=== PATIENT | male | born 1950 | race Caucasian/White ===

== ENCOUNTER → 2016-04-30 | Day surgery (SDC) | payer OTHER ==
[2016-04-23 08:40] VITALS: BMI 25.0
[~2016-04-30] VITALS: Ht 165.1 cm; Wt 69.5 kg
[~2016-04-30] MED LIST: ASPI325T45 PO; ATOR10TA88 PO; ATROPINE SULFATE 0.1 MG/ML 5ML SYR IV PRN; EpHEDrine SULFATE INJ 50 MG/ML AMP IV PRN; LIDOCAINE HCL 2% 2 ML VIAL (20MG/ML) ONE; LISI-789 PO; LSN25 PO; MULT-513 PO; PRLSR20 PO; PROPOFOL IV EMULSION 10 MG/ML 20 ML VIAL IV ONE; SODIUM CHLORIDE 0.9% 500ML 500 ML IV ONE; VITACAP37 PO
[2016-04-30 09:33] VITALS: Ht 165.1 cm; Wt 69.5 kg
--- NOTE | 2016-04-30 10:06 | Endo History and Physical ---
History & Physical Date of Service: Apr 30, 2016. Chief Complaint: screening for Ca Referring Physician: Dr. Toth History of Present Illness 66 yo CM who presents for screening colonoscopy. Past Surgical History Hx Cardiac Surgery: No Hx Internal Defibrillator: No Hx Pacemaker: No Hx Abdominal Surgery: No Hx of Implantable Prosthesis: No Hx Post-Op Nausea and Vomiting: No Hx Cancer Surgery: No Hx Thoracic Surgery: No Hx Orthopedic: Yes (LT SHOULDER, RT FOOT BIG TOE BONE SPUR) Hx Urinary Tract Surgery: No Family History None Social History Smoking Status: Never Smoker Hx Substance Use: No Hx Alcohol Use: Yes (OCCASIONAL) Allergies Coded Allergies: No Known Allergies (Verified , 04/30/16) Current Medications Reported Home Medications Medications Dose Route/Sig Max Daily Dose Days Date Category E-400 (Vitamin E) 400 Unit Cap 1 Tab PO QAM 04/23/16 Reported Aspirin 325 Mg Tab 325 Mg PO QAM 04/23/16 Reported Mvi With Minerals (Multivitamins/Minerals) Tab 1 Tab PO QAM 10/24/10 Reported Prilosec (Omeprazole) 20 Mg Capcr 20 Mg PO QAM 10/24/10 Reported Lipitor (Atorvastatin Calcium) 10 Mg Tab 10 Mg PO HS 10/23/10 Reported Zestril * (Lisinopril) 2.5 Mg Tab 2.5 Mg PO QAM 01/06/07 Reported Vital Signs Weight (Kilograms): 69.55 Height (Feet): 5 Height (Inches): 5 Date Time Temp Pulse Resp B/P Pulse Ox O2 Delivery O2 Flow Rate FiO2 04/30/16 09:38 36 55 20 140/84 100 Room Air Physical Exam General Appearance: WD/WN, no apparent distress Respiratory/Chest: Auscultation: breath sounds normal Cardiovascular: Heart Auscultation: RRR Abdomen: Bowel Sounds: normal Inspection & Palpation: soft, non-distended, no tenderness, guarding & rebound Assessment and Plan Assessment: 66 yo CM who presents for screening colonoscopy. Plan: Proceed with colonoscopy.
--- NOTE | 2016-04-30 10:23 | Discharge Instructions ---
Endoscopy Patient Instructions Date / Procedure(s) Performed Apr 30, 2016. Colonoscopy Allergy Information Coded Allergies: No Known Allergies (Verified , 04/30/16) Discharge Date / Findings Apr 30, 2016. Colon polyp Diverticulosis Internal hemorrhoids Medication Instructions OK to resume all medications today as prescribed. Reported Home Medications Medications Dose Route/Sig Max Daily Dose Days Date Category E-400 (Vitamin E) 400 Unit Cap 1 Tab PO QAM 04/23/16 Reported Aspirin 325 Mg Tab 325 Mg PO QAM 04/23/16 Reported Mvi With Minerals (Multivitamins/Minerals) Tab 1 Tab PO QAM 10/24/10 Reported Prilosec (Omeprazole) 20 Mg Capcr 20 Mg PO QAM 10/24/10 Reported Lipitor (Atorvastatin Calcium) 10 Mg Tab 10 Mg PO HS 10/23/10 Reported Zestril * (Lisinopril) 2.5 Mg Tab 2.5 Mg PO QAM 01/06/07 Reported Provider Instructions Activity Restrictions - No exercising or heavy lifting for 24 hours. - Do not drink alcohol the day of the procedure. - Do not drive a car or operate machinery until the day after the procedure. - Do not make any important decisions or sign important papers in 24 hours after the procedure. Following Day: - Return to full activity which may include returning to work/school. Diet Start your diet with liquids and light foods (jello, soup, juice, toast). Then eat your usual diet if not nauseated. Treatment For Common After Affects For mild abdominal pain, bloating, or excessive gas: - Rest - Eat lightly - Lie on right side Follow-Up Information Follow-up with as scheduled Anesthesia Information What You Should Know You have had a procedure that required some medicine to reduce anxiety and discomfort. This treatment is called moderate sedation. After receiving the treatment, you may be sleepy, but you will be able to breathe on your own. The effects of the treatment may last for several hours. Follow these instructions along with Activity/Diet recommendations noted above: * Do NOT do anything where dizziness or clumsiness would be dangerous. * Rest quietly at home today, then you can be up and about tomorrow. * Have a responsible person stay with you the rest of today. * You may have had an I.V. today. If so, you may take the dressing off later today. Recommendations Call your doctor if: * Trouble breathing * Continuous vomiting for more than 24 hours * Temperature above 101 degrees * Severe abdominal pain or bloating * Pain not relieved by pain medicine ordered * There is increased drainage or redness from any incision * A large amount of rectal bleeding greater than 2-3 tablespoons. (If you had a polyp/s removed or have hemorrhoids, a small amount of blood - from the rectum is to be expected.) * You have any unanswered questions or concerns. IN THE EVENT OF A SERIOUS EMERGENCY, GO TO THE NEAREST EMERGENCY ROOM Your discharge instructions were prepared by provider Tunde Madrigal. Patient Instructions Signature Page Tanmay Yun Patient (or Guardian) Signature/Date: I have read and understand the instructions given to me by my caregivers. Caregiver/RN/Doctor Signature/Date: The above-named patient and/or guardian has received patient instructions on this date. + Original Patient Signature Page (only) stays with chart. Please make copy for patient.
--- NOTE | 2016-04-30 10:28 | Anesthesiology Progress Note ---
Anesthesia Post Op Note Date & Time Apr 30, 2016 at 10:27 Vital Signs Pain Intensity: 0 Vital Signs Past 12 Hours Date Time Temp Pulse Resp B/P Pulse Ox O2 Delivery O2 Flow Rate FiO2 04/30/16 09:38 36 55 20 140/84 100 Room Air Notes Mental Status: alert / awake / arousable, participated in evaluation Pt Amnestic to Procedure: Yes Nausea / Vomiting: adequately controlled Pain: adequately controlled Airway Patency, RR, SpO2: stable & adequate BP & HR: stable & adequate Hydration State: stable & adequate Anesthetic Complications: no major complications apparent
--- NOTE | 2016-04-30 10:29 | GI REPORT ---
Procedure Date: 04/30/2016 9:50 AM Procedure: Colonoscopy Indications: Screening for colorectal malignant neoplasm Medicines: Monitored Anesthesia Care Complications: No immediate complications. Estimated Blood Loss: Estimated blood loss: none. Procedure: Pre-Anesthesia Assessment: - Prior to the procedure, a History and Physical was performed, and patient medications and allergies were reviewed. The patient's tolerance of previous anesthesia was also reviewed. The risks and benefits of the procedure and the sedation options and risks were discussed with the patient. All questions were answered, and informed consent was obtained. Prior Anticoagulants: The patient has taken aspirin, last dose was 7 days prior to procedure. ASA Grade Assessment: II - A patient with mild systemic disease. After reviewing the risks and benefits, the patient was deemed in satisfactory condition to undergo the procedure. After I obtained informed consent, the scope was passed under direct vision. Throughout the procedure, the patient's blood pressure, pulse, and oxygen saturations were monitored continuously. The scope was introduced through the anus and advanced to the terminal ileum. The colonoscopy was performed without difficulty. The patient tolerated the procedure well. The quality of the bowel preparation was good. The terminal ileum, ileocecal valve, appendiceal orifice, and rectum were photographed. The terminal ileum, ileocecal valve, appendiceal orifice, and rectum were photographed. Findings: A 5 mm polyp was found in the ascending colon. The polyp was sessile. The polyp was removed with a hot snare. Resection and retrieval were complete. Multiple small-mouthed diverticula were found in the sigmoid colon. Non-bleeding internal hemorrhoids were found during retroflexion. The hemorrhoids were small. Impression: - One 5 mm polyp in the ascending colon, removed with a hot snare. Resected and retrieved. - Diverticulosis in the sigmoid colon. - Non-bleeding internal hemorrhoids. Recommendation: - Resume previous diet. - Continue present medications. - Repeat colonoscopy for surveillance based on pathology results. - Return to primary care physician as previously scheduled. Tunde Madrigal, DO 04/30/2016 10:28:28 AM This report has been signed electronically. Note Initiated On: 04/30/2016 9:50 AM
[2016-04-30 10:52] VITALS: BP 140/76; PULSE 65; O2SAT 100
== END | disposition home or self-care (01) ==
LOC: C.GI 09:09
PROVIDERS: ATTEND Internal Medicine
DX: Z12.11 Encounter for screening for malignant neoplasm of colon (principal); D12.2 Benign neoplasm of ascending colon; K57.30 Diverticulosis of large intestine without perforation or abscess without bleeding; K64.8 Other hemorrhoids; I10 Essential (primary) hypertension; E78.5 Hyperlipidemia, unspecified

== ENCOUNTER 2016-06-07 11:22 | Emergency (ER) | payer OTHER ==
[~2016-06-07] VITALS: Ht 165.1 cm; Wt 71.3 kg
[~2016-06-07 11:22] MED LIST changes: -ATROPINE SULFATE 0.1 MG/ML 5ML SYR IV PRN; -EpHEDrine SULFATE INJ 50 MG/ML AMP IV PRN; -LIDOCAINE HCL 2% 2 ML VIAL (20MG/ML) ONE; -LISI-789 PO; -PROPOFOL IV EMULSION 10 MG/ML 20 ML VIAL IV ONE; -SODIUM CHLORIDE 0.9% 500ML 500 ML IV ONE
[2016-06-07 11:24] VITALS: TEMP 36.8; Ht 165.1 cm; Wt 71.3 kg
[2016-06-07 12:42] LABS: BASO % 0.3 %; BASO ABS # 0.02 K/uL (0-0.2); COMPLETE YES; EOS % 0.7 %; HEMATOCRIT 42.7 % (42-52); IG% 0.2 %; LYMPH % 15.4 %; MEAN CELL VOLUME 89.9 fL (80-100); MEAN CORPUSCULAR HEMOGLOBIN 31.4 pg (25-34); MEAN CORPUSCULAR HGB CONC 34.9 g/dl (32-36); MEAN PLATELET VOLUME 11.2 fL (7.4-10.4); MONO % 8.5 %; NEUT % 74.9 %; PLATELET COUNT 309 K/uL (130-400); RED BLOOD COUNT 4.75 M/uL (4.7-6.1); WHITE BLOOD COUNT 5.86 K/uL (4.8-10.8)
--- NOTE | 2016-06-07 12:42 | EMERGENCY ROOM VISIT NOTE ---
History Report prepared by Connie: Osman Maxwell Under the Supervision of: Dr. Jose M Brooks M.D. First contact with patient: 12:17 Chief Complaint: RESPIRATORY PROBLEMS Stated Complaint: CAN'T CATCH BREATH Nursing Triage Summary: Having trouble catching breath, symptoms on and off for a few weeks. Trouble taking a deep breath in, "like i cant get enough oxygen." Became SOB walking up stairs today that brought him in. Denies pulmonary history of blood clots. Denies CP. History of Present Illness The patient is a 66 year old male who presents to the Emergency Room with complaints of intermittent shortness of breath for the last two weeks. The shortness of breath was worse today, especially with exertion including going up the stairs. The patient denies any chest pain, including with exertion. He also denies any fevers, abdominal pain, or swelling of the lower extremities. The patient denies any history of cardiac or lung disease. His last stress test was 9-10 years ago. The patient was recently on a 2 [address] ride. He is a former smoker but uses chewing tobacco. The patient takes lisinopril for hypertension. He is not diabetic. Source of History: patient Onset: two weeks Position: other (respiratory) Quality: other (short of breath) Timing: intermittent Modifying Factors (Worsening): exertion Associated Symptoms: No abdominal pain, No chest pain, No fevers Review of Systems See HPI for pertinent positives & negatives. A total of 10 systems reviewed and were otherwise negative. Past Medical & Surgical Medical Problems: (1) HTN (hypertension) Family History No pertinent family history Social History Smoking Status: Never Smoker Marital Status: Housing Status: lives with family Current/Historical Medications Scheduled Aspirin (Aspirin), 325 MG PO QAM Atorvastatin (Lipitor), 10 MG PO HS Lisinopril (Zestril), 2.5 MG PO QAM Multivitamins/Minerals (Mvi With Minerals), 1 TAB PO QAM Omeprazole (Prilosec), 20 MG PO QAM Vitamin E (E-400), 1 TAB PO QAM Allergies Coded Allergies: No Known Allergies (Verified , 04/30/16) Physical Exam Vital Signs Date Time Temp Pulse Resp B/P Pulse Ox O2 Delivery O2 Flow Rate FiO2 06/07/16 17:07 75 18 140/96 98 06/07/16 13:12 62 18 130/86 06/07/16 12:58 58 99 Room Air 06/07/16 11:50 57 06/07/16 11:24 36.8 70 18 155/89 100 Room Air Physical Exam GENERAL: Patient is a healthy-appearing well-nourished HEAD: Normocephalic atraumatic EYES: Ocular movements intact pupils equal and react to light OROPHARYNX mucous membranes are moist no exudates present no erythema or edema present NECK: Supple no nuchal rigidity CHEST: Good equal expansion LUNGS: Clear and equal to auscultation CARDIAC: Normal S1 and S2 ABDOMEN: Soft nontender no guarding BACK: No CVA tenderness EXTREMITIES: No pain upon palpation normal muscle strength in all groups no clubbing cyanosis or edema NEURO: Patient is following commands is answering questions appropriately. Alert and oriented x3 Cranial Nerves 2-12 grossly intact Medical Decision & Procedures ER Provider Diagnostic Interpretation: Radiology results as stated below per my review and radiologist interpretation: CHEST ONE VIEW PORTABLE CLINICAL HISTORY: Pt c/o SOB dyspnea COMPARISON STUDY: No previous studies for comparison. FINDINGS: The bones soft tissues and hemidiaphragms are normal. The cardiomediastinal silhouette is normal. The lungs are clear. The pulmonary vasculature is normal. IMPRESSION: Negative chest. Electronically signed by: José Miguel Barnes M.D. 06/07/2016 1:05 PM Dictated Date/Time: 06/07/2016 1:05 PM Laboratory Results 06/07/16 11:45 Red Blood Count 4.75, Mean Corpuscular Volume 89.9, Mean Corpuscular Hemoglobin 31.4, Mean Corpuscular Hemoglobin Concent 34.9, Mean Platelet Volume 11.2, Neutrophils (%) (Auto) 74.9, Lymphocytes (%) (Auto) 15.4, Monocytes (%) (Auto) 8.5, Eosinophils (%) (Auto) 0.7, Basophils (%) (Auto) 0.3, Neutrophils # (Auto) 4.39, Lymphocytes # (Auto) 0.90, Monocytes # (Auto) 0.50, Eosinophils # (Auto) 0.04, Basophils # (Auto) 0.02 06/07/16 11:45 Test 06/07/16 11:45 06/07/16 13:20 White Blood Count 5.86 K/uL (4.8-10.8) Red Blood Count 4.75 M/uL (4.7-6.1) Hemoglobin 14.9 g/dL (14.0-18.0) Hematocrit 42.7 % (42-52) Mean Corpuscular Volume 89.9 fL (80-100) Mean Corpuscular Hemoglobin 31.4 pg (25-34) Mean Corpuscular Hemoglobin Concent 34.9 g/dl (32-36) Platelet Count 309 K/uL (130-400) Mean Platelet Volume 11.2 fL (7.4-10.4) Neutrophils (%) (Auto) 74.9 % Lymphocytes (%) (Auto) 15.4 % Monocytes (%) (Auto) 8.5 % Eosinophils (%) (Auto) 0.7 % Basophils (%) (Auto) 0.3 % Neutrophils # (Auto) 4.39 K/uL (1.4-6.5) Lymphocytes # (Auto) 0.90 K/uL (1.2-3.4) Monocytes # (Auto) 0.50 K/uL (0.11-0.59) Eosinophils # (Auto) 0.04 K/uL (0-0.5) Basophils # (Auto) 0.02 K/uL (0-0.2) RDW Standard Deviation 42.7 fL (36.4-46.3) RDW Coefficient of Variation 13.0 % (11.5-14.5) Immature Granulocyte % (Auto) 0.2 % Immature Granulocyte # (Auto) 0.01 K/uL (0.00-0.02) D-Dimer 990 ug/L FEU (0-500) Anion Gap 10.0 mmol/L (3-11) Est Creatinine Clear Calc Drug Dose 52.7 ml/min Estimated GFR () 72.6 Estimated GFR (Non- 62.6 BUN/Creatinine Ratio 17.1 (10-20) Calcium Level 9.3 mg/dl (8.5-10.1) Total Bilirubin 0.5 mg/dl (0.2-1) Aspartate Amino Transf (AST/SGOT) 19 U/L (15-37) Alanine Aminotransferase (ALT/SGPT) 26 U/L (12-78) Alkaline Phosphatase 59 U/L (45-117) Total Creatine Kinase 140 U/L (39-308) Creatine Kinase MB 2.7 ng/ml (0.5-3.6) Creatine Kinase MB Ratio 1.9 (0-3.0) Troponin I < 0.015 ng/ml (0-0.045) Pro-B-Type Natriuretic Peptide 72 pg/ml (0-900) Total Protein 7.9 gm/dl (6.4-8.2) Albumin 4.1 gm/dl (3.4-5.0) Globulin 3.8 gm/dl (2.5-4.0) Albumin/Globulin Ratio 1.1 (0.9-2) Influenza Type A (RT-PCR) Neg for Influ A (NEG) Influenza Type A Antigen Neg for Influ A (NEG) Influenza Type B Antigen Neg for Influ B (NEG) Influenza Type B (RT-PCR) Neg for Influ B (NEG) Labs reviewed by ED physician. Medications Administered Medications (Trade) Dose Ordered Sig/Jorge L Route Start Time Stop Time Status Last Admin Dose Admin Albuterol/ Ipratropium (Duoneb) 12 ml ONE ONCE INH 06/07/16 12:45 06/07/16 12:46 DC 06/07/16 12:56 12 ML ECG Indication: SOB/dyspnea Rate (beats per minute): 58 Rhythm: sinus bradycardia Findings: no acute ischemic change, no ectopy ED Course 1235: Past medical records reviewed. The patient was evaluated in room C6. A complete history and physical examination was performed. 1245: DuoNeb 12 ml INH. Medical Decision Differential diagnosis: Etiologies such as infections, reactive airway disease, pneumonia, pneumothorax , COPD, CHF, cardiac ischemia, pulmonary embolism, musculoskeletal, gastrointestinal, as well as others were entertained. This is a 66-year-old male who presents emergency part complaining of shortness of breath with exertion. The patient has a normal CK-MB and troponin function. In addition he has an elevation in his d-dimer therefore he was sent for CAT scan of the chest. This did not show any evidence of pulmonary embolus. Patient was given a breathing treatment in the emergency department which did not improve his symptoms. I did discuss discussed the case with Dr. Madrigal to get a stat stress test performed. The patient was signed out to Dr. Licea at change of shift. Impression Primary Impression: Dyspnea Scribe Attestation The scribe's documentation has been prepared under my direction and personally reviewed by me in its entirety. I confirm that the note above accurately reflects all work, treatment, procedures, and medical decision making performed by me. Departure Information Dispostion Still a Patient Referrals Pro,Keshav Torres M.D. (PCP) Patient Instructions My [facility] Problem Qualifiers Primary Impression: Dyspnea Dyspnea type: dyspnea on exertion Qualified Codes: R06.09 - Other forms of dyspnea
[2016-06-07] MEDS ORDERED: ALBUT/IPRATROP 3MG/0.5MG NEB 3 ML VIAL INH ONE (12:45)
[2016-06-07 12:50] LABS: ALT/SGPT 26 U/L (12-78); BLOOD UREA NITROGEN 21 mg/dl (7-18); BUN/CREATININE RATIO 17.1 (10-20); CALCIUM 9.3 mg/dl (8.5-10.1); CARBON DIOXIDE 25 mmol/L (21-32); CHLORIDE 103 mmol/L (98-107); GLUCOSE 93 mg/dl (70-99); POTASSIUM 3.8 mmol/L (3.5-5.1); SODIUM 138 mmol/L (136-145)
[2016-06-07 12:55] LABS: ALB/GLOB RATIO 1.1 (0.9-2); ALKALINE PHOSPHATASE 59 U/L (45-117); AST/SGOT 19 U/L (15-37); CKMB/CK RATIO 1.9 (0-3.0)
[2016-06-07 12:58] VITALS: PULSE 58; O2SAT 99
--- NOTE | 2016-06-07 13:06 | DIAGNOSTIC IMAGING REPORT ---
CHEST ONE VIEW PORTABLE CLINICAL HISTORY: Pt c/o SOB dyspnea COMPARISON STUDY: No previous studies for comparison. FINDINGS: The bones soft tissues and hemidiaphragms are normal. The cardiomediastinal silhouette is normal. The lungs are clear. The pulmonary vasculature is normal. IMPRESSION: Negative chest. Electronically signed by: José Miguel Barnes M.D. 06/07/2016 1:05 PM Dictated Date/Time: 06/07/2016 1:05 PM
[2016-06-07] MEDS ORDERED: LISI-789 PO (13:52)
[2016-06-07] MEDS ORDERED: OPTIRAY 320 IV PRN (14:45)
--- NOTE | 2016-06-07 14:54 | DIAGNOSTIC IMAGING REPORT ---
CT ANGIOGRAPHY OF THE CHEST, PULMONARY EMBOLUS PROTOCOL CLINICAL HISTORY: Shortness of breath. COMPARISON STUDY: Chest radiograph June 07, 2016. TECHNIQUE: Following IV administration of 93 mL of Optiray-320, helical axial images of the chest were obtained utilizing the pulmonary embolus protocol. Maximal intensity projections and sagittal and coronal reformats were viewed on an independent 3D workstation. IV contrast was administered without complication. CT DOSE: 379.24 mGy.cm FINDINGS: No pulmonary emboli are identified. The size of the heart is normal. There is no evidence of thoracic aortic dissection. Central airways are patent. Lungs are clear. There is no pneumothorax or pleural effusion. No enlarged axillary, mediastinal or hilar lymph nodes are present. Bony thorax and upper abdomen are unremarkable. IMPRESSION: 1. No pulmonary emboli identified. 2. No acute intrathoracic findings. Electronically signed by: Calvin Padilla M.D. 06/07/2016 2:53 PM Dictated Date/Time: 06/07/2016 2:47 PM
[2016-06-07 16:44] LABS: INFLUENZA A PCR Neg for Influ A (NEG); INFLUENZA B PCR Neg for Influ B (NEG)
[2016-06-07 17:07] VITALS: BP 140/96; PULSE 75; O2SAT 98
--- NOTE | 2016-06-07 17:26 | EXERCISE STRESS ECHO ---
*NOTICE TO RECEIVING CONSTITUTION PARTY AGENCY This information is strictly Confidential and protected under [place] law. [place] law prohibits you from making any further disclosure of this information unless further disclosure is expressly permitted by the written consent of the person to whom it pertains or is authorized by law. A general authorization for the release of medical or other information is not sufficient for this purpose. Hospital accepts no responsibility if the information is made available to any other person, INCLUDING THE PATIENT. Interpretation Summary * Name: MADELINE GRACES Study Date: 06/07/2016 03:35 PM BP: 154/96 mmHg * Patient Location: [facility] HR: 59 * : 1950 (M/d/yyyy) Gender: Male Height: 65 in * Age: 66 yrs Ethnicity: [place] Weight: 157 lb * Ordering Physician: Jose M Brooks * Referring Physician: Self, Referred * Performed By: Enid Nesbitt RCS * * Reason For Study: Dyspnea * BSA: 1.8 m2 * Normal resting biventricular systolic function. * Left ventricular diastolic dysfunction. * Normal chamber dimensions. * Mild pulmonic regurgitation. * Trace mitral and tricuspid regurgitation. * The exercise echocardiographic examination is normal without resting left ventricular wall motion abnormalities or inducible ischemia. * The stress ECG response was normal * The stress echocardiogram is negative for inducible ischemia. * RESTING STUDY: Normal left ventricular cavity size, myocardial thickness, wall motion, and systolic function. * Stress wall motion was normal. Procedure Details * ECHOEX, CPT #[id number] * ECHO COLOR FLOW, CPT #[id number] * ECHO DOPPLER, CPT #[id number] Left Ventricle * The left ventricle is normal in size. * There is normal left ventricular wall thickness. * Ejection Fraction = 65-70%. * A full diastolic examination was done with clinical findings of Class I diastolic dysfunction. * Resting wall motion: Normal. Stress wall motion: Appropriate increase in Left ventricular systolic function and decrease in cavity size. No stress induced segmental wall motion abnormalities. * The left ventricular ejection fraction increases normally with stress. The left ventricular end-systolic cavity size reduces post-stress (normal response). The left ventricular wall motion with stress is normal. * No regional wall motion abnormalities noted. Right Ventricle * The right ventricle is normal in size and function. Atria * The left atrial size is normal. * Right atrial size is normal. * No ASD detected; PFO is not assessed. Mitral Valve * The mitral valve is normal. * There is no mitral valve stenosis. * There is trace mitral regurgitation. Tricuspid Valve * The tricuspid valve is normal. * There is no tricuspid stenosis. * There is trace tricuspid regurgitation. * Right ventricular systolic pressure is normal. Aortic Valve * The aortic valve is trileaflet. * The aortic valve opens well. * Aortic stenosis is absent. * No aortic regurgitation is present. Pulmonic Valve * The pulmonic valve is not well seen, but is grossly normal. * Mild pulmonic valvular regurgitation. Great Vessels * The aortic root is normal size. Pericardium * There is no pericardial effusion. Stress Parameters * Normal sinus rhythm, right sided conduction delay, normal ST -T * Stress ECG: No ST changes. No arrhythmias. * Rare premature ventricular beats in early exercise. * The stress portion of this study was personally supervised by the undersigned interpreting physician. * Rest heart rate was '59' BPM. * Rest blood pressure was '154/96' * Maximum heart rate achieved was 148 bpm. * Maximum heart rate was 96 % of maximum age-predicted heart rate. * Maximum blood pressure was '183/71' * Total exercise time was '9:01' * Maximum exercise MET level achieved was '10.1' METS * Maximum treadmill speed was '3.4' miles per hour. * Maximum treadmill elevation was '14'% grade. * Exercise was terminated due to 'leg fatigue' * Normal blood pressure response to exercise. MMode 2D Measurements and Calculations IVSd 1.0 cm IVSs 1.2 cm LVIDd 4.8 cm LVIDs 3.0 cm LVPWd 0.99 cm LVPWs 1.2 cm IVS/LVPW 1.0 FS 37.7 % EDV(Teich) 108.4 ml ESV(Teich) 35.1 ml EF(Teich) 67.6 % EDV(cubed) 111.7 ml ESV(cubed) 27.1 ml EF(cubed) 75.8 % % IVS thick 20.2 % % LVPW thick 16.7 % LV mass(C)d 170.1 grams LV mass(C)dI 95.3 grams/m\S\2 LV mass(C)s 106.3 grams LV mass(C)sI 59.5 grams/m\S\2 CO(Teich) 4.5 l/min CI(Teich) 2.5 l/min/m\S\2 SV(Teich) 73.3 ml SI(Teich) 41.1 ml/m\S\2 CO(cubed) 5.2 l/min CI(cubed) 2.9 l/min/m\S\2 SV(cubed) 84.6 ml SI(cubed) 47.4 ml/m\S\2 Ao root diam 3.8 cm Ao root area 11.3 cm\S\2 ACS 1.7 cm LA dimension 3.4 cm LA/Ao 0.90 LVAd ap4 33.9 cm\S\2 LVLd ap4 8.8 cm EDV(MOD-sp4) 107.0 ml LVAs ap4 18.7 cm\S\2 LVLs ap4 7.6 cm ESV(MOD-sp4) 39.0 ml EF(MOD-sp4) 63.6 % LVAd ap2 27.8 cm\S\2 LVLd ap2 8.9 cm EDV(MOD-sp2) 72.0 ml LVAs ap2 10.7 cm\S\2 LVLs ap2 6.5 cm ESV(MOD-sp2) 16.0 ml EF(MOD-sp2) 77.8 % CO(MOD-sp4) 4.2 l/min CI(MOD-sp4) 2.4 l/min/m\S\2 SV(MOD-sp4) 68.0 ml SI(MOD-sp4) 38.1 ml/m\S\2 CO(MOD-sp2) 3.5 l/min CI(MOD-sp2) 1.9 l/min/m\S\2 SV(MOD-sp2) 56.0 ml SI(MOD-sp2) 31.4 ml/m\S\2 Doppler Measurements and Calculations MV E max rachid 80.9 cm/sec MV A max rachid 85.4 cm/sec MV E/A 0.95 MV P1/2t max rachid 104.7 cm/sec MV P1/2t 87.0 msec MVA(P1/2t) 2.5 cm\S\2 MV dec slope 352.5 cm/sec\S\2 MV dec time 0.23 sec Ao V2 max 132.8 cm/sec Ao max PG 7.1 mmHg Ao max PG (full) 1.5 mmHg LV V1 max PG 5.5 mmHg LV V1 max 117.5 cm/sec PA V2 max 132.6 cm/sec PA max PG 7.0 mmHg PI max rachid 202.4 cm/sec PI max PG 16.6 mmHg PI dec slope 195.0 cm/sec\S\2 PI P1/2t 303.9 msec TR max rachid 223.1 cm/sec
--- NOTE | 2016-06-07 22:38 | EMERGENCY ROOM VISIT NOTE ---
ED Visit Note First contact with patient: 16:03 I received this patient in signout at the change of shift from Dr. Jose M Brooks pending cardiac stress test. Per Dr. Mason the patient did well and had no ischemic change. The patient was discharged per Dr. Brooks's instructions to follow-up with his PCP. He will return to the ER for worsening of symptoms or any medical concerns.
== END 2016-06-07 17:08 | disposition home or self-care (01) ==
LOC: C.EDB 11:23 → C.EDC 17:08
DX: R06.09 Other forms of dyspnea (principal); F17.220 Nicotine dependence, chewing tobacco, uncomplicated; I10 Essential (primary) hypertension; Z79.899 Other long term (current) drug therapy; Z79.82 Long term (current) use of aspirin

== ENCOUNTER → 2017-01-21 | Outpatient (CLI) | payer OTHER ==
[~2017-01-21] MED LIST changes: +LISI-789 PO; -LSN25 PO
[2017-01-21 12:25] LABS: ALT/SGPT 24 U/L (12-78); BLOOD UREA NITROGEN 16 mg/dl (7-18); BUN/CREATININE RATIO 14.5 (10-20); CARBON DIOXIDE 26 mmol/L (21-32); CHLORIDE 109 mmol/L (98-107); CHOLESTEROL 188 mg/dl (0-200); GLUCOSE 95 mg/dl (70-99); POTASSIUM 4.1 mmol/L (3.5-5.1); SODIUM 142 mmol/L (136-145)
[2017-01-21 12:31] LABS: ALB/GLOB RATIO 1.2 (0.9-2); ALKALINE PHOSPHATASE 52 U/L (45-117); AST/SGOT 15 U/L (15-37); CHOLESTEROL/HDL RATIO 2.8; HDL CHOLESTEROL 67 mg/dl; LDL CHOLESTEROL CALCULATED 98 mg/dl; TRIGLYCERIDES 113 mg/dl (0-150); VERY LOW DENSITY LIPOPROT CALC 23 mg/dl
== END | disposition home or self-care (01) ==
LOC: C.LAB1850 10:37
PROVIDERS: ATTEND Internal Medicine
DX: Z00.00 Encounter for general adult medical examination without abnormal findings (principal); E78.5 Hyperlipidemia, unspecified; R97.20 Elevated prostate specific antigen [PSA]; R73.01 Impaired fasting glucose; I10 Essential (primary) hypertension; N40.0 Benign prostatic hyperplasia without lower urinary tract symptoms

== ENCOUNTER 2022-05-15 11:13 | Observation (INO) ==
[2022-05-15] MEDS ORDERED: OPTIRAY 320 500ml IV ONE (11:33)
[2022-05-15] MEDS ORDERED: LABETALOL HCL IV 5 MG/ML 20ML IV STA (11:47)
--- NOTE | 2022-05-15 11:49 | CT Scan Report ---
CT SCAN OF THE BRAIN WITHOUT IV CONTRAST CLINICAL HISTORY: Neurological deficit. Stroke like symptoms. Left-sided weakness. COMPARISON STUDY: CT of the brain dated 01/06/2007 TECHNIQUE: Unenhanced axial CT scan of the brain is performed from the vertex to the skull base. A do se lowering technique was utilized adhering to the principles of ALARA. FINDINGS: Brain parenchyma: There is age-related involutional change noting moderate subcortical and periventri cular microangiopathic disease. There is no hemorrhage, mass effect, or evidence of acute territorial ischemia by CT criteria. Velazquez-white matter differentiation is preserved. No extra-axial fluid collec tion is seen. Ventricles, sulci, cisterns: Prominent secondary to involutional change. Intracranial vasculature: There is atherosclerotic calcification of the cavernous carotid and vertebr al arteries. Calvarium: Unremarkable. Sinuses and mastoids: The visualized paranasal sinuses are clear. The mastoid air cells are well pneu matized. Orbits: The bony orbits are grossly intact. IMPRESSION: There is no hemorrhage, mass effect, or evidence of acute territorial ischemia by CT promise lazo. ACT 112: Negative or not required by law. Electronically signed by: Kamron Turner M.D. 05/15/2022 11:48 AM
--- NOTE | 2022-05-15 11:49 | Emergency Department Note ---
Impression & Plan Stroke-like symptom ADMIT ED Provider Note HPI: The patient is a 72-year-old gentleman with history of hypertension, hyperlipidemia, presents the emergency department with multiple issues. Patient states that around 7:30 in the morning he began to have a sensation of lightheadedness with some moderate shortness of breath. Patient states that he left the house went to get his haircut, when he returned home at approximately 9 AM he began to have a sensation of left arm numbness. Patient states that on arrival here to the ED the sensation of left arm numbness is almost completely resolved. Stroke alert was activated from triage by nursing staff after the patient was evaluated in triage, he was taken to CT imaging immediately. On my initial assessment upon his return, patient does not have any obvious focal deficits on my exam, complains of very mild sensation of left arm numbness but otherwise does not have any focal deficits or other complaints. ROS: - Per HPI *Outpatient medications and allergy history reviewed. *Pertinent external medical records reviewed. PE: General: Alert HEENT: Normocephalic, trachea midline Eyes: Extraocular eye movement is intact, no scleral erythema Pulmonary: Clear to auscultation bilaterally, no wheezing Cardio: Regular rate and rhythm GI: Abdomen is soft, nontender : No suprapubic tenderness MSK: No evidence of trauma or malformation of the extremities, no edema Skin: No evidence of rash Neuro: Alert, no focal deficits, equal bilateral wire lather strength, no ataxia on [id number] testing bilaterally, no drift of the upper extremities or lower extremities with testing against gravity Psychiatric: Cooperative quality assurance monitor body: - An order was placed for continuous cardiac monitoring - Patient was noted to be in sinus rhythm with a rate of 65 EKG: (As interpreted by myself): Rate: 63 Rhythm: Normal sinus rhythm Intervals: Within normal limits ST changes: No ST elevation Time: 1144 Interventions provided in ED: -IV labetalol, clopidogrel NIH STROKE SCALE: 1A: Level of consciousness Alert; keenly responsive 0 1B: Ask month and age Both questions right 0 1C: 'Blink eyes' & 'squeeze hands' Performs both tasks 0 2: Horizontal extraocular movements Normal 0 3: Visual daly No visual loss 0 4: Facial palsy Normal symmetry 0 5A: Left arm motor drift No drift for 10 seconds 0 5B: Right arm motor drift No drift for 10 seconds 0 6A: Left leg motor drift No drift for 5 seconds 0 6B: Right leg motor drift No drift for 5 seconds 0 7: Limb Ataxia No ataxia 0 8: Sensation Normal; no sensory loss 0 9: Language/aphasia Normal; no aphasia 0 10: Dysarthria Normal 0 11: Extinction/inattention No abnormality 0 TOTAL NIH SCORE =0 Medical Decision Making: Patient presented to the emergency department with a chief complaint of ligh theadedness and left upper extremity numbness. Patient states that this sensation was transient in nature, on arrival here to the ED his symptoms largely resolved. Stroke alert was initiated from triage given the patient's complaint of left upper extremity numbness and tingling. Patient was taken to CT, CT imaging of the head without contrast does not show any evidence of intracranial bleeding, CT angiography does not show any evidence of large vessel occlusion. I did discuss the patient's presentation with on- call stroke neurology at [facility], Dr. Kimble, at this time recommends avoidance of thrombolytic therapy given the patient's symptomatic improvement, borderline window on arrival, in addition to symptoms being purely sensory in nature. I did discuss this with the patient and his and he is in agreement to forego thrombolytics. Suspicion is high for TIA given the patient's presenting hypertension, he was given a dose of IV labetalol shortly after arrival. Lab work is otherwise generally unremarkable, patient is hemodynamically stable and saturating well on room air, blood pressure did improve to 150/77 following IV labetalol. He was loaded with clopidogrel at the advice of stroke neurology. Given the patient's ongoing symptoms, hypertension, he will be admitted to the hospitalist service following my discussion with the on-call hospitalist, Dr. Cosme. Patient will require secondary work-up and MRI. Patient and his at the bedside are in agreement to the above plan the patient was admitted in stable condition for further care Disposition discussion held by myself with: Patient and Consultants contacted from the ED: -Stroke neurology, Dr. Kimble -Hospitalist service, Dr. Cosme * CRITICAL CARE TIME: ( 45 ) minutes -Management of strokelike symptoms within window for potential thrombolytics requiring stroke alert activation to be called, time spent at the bedside with history and physical exam as well as NIH stroke scale, discussion with stroke neurology on-call, administration of IV labetalol for hypertension in the setting of neurologic deficit, arrangement of admission and discussion with hospitalist service Diagnosis: 1. Left upper extremity numbness/tingling 2. Hypertensive emergency 3. Lightheadedness, acute Disposition: Admission José Miguel Dangelo DO Emergency Medicine Past Med/Surg History Medical History Diverticulosis of colon GERD (gastroesophageal reflux disease) History of vitamin D deficiency Hyperlipidemia Hypertension Internal hemorrhoids Tubular adenoma of colon Surgical History History of carpal tunnel surgery of right wrist History of colonoscopy History of esophagogastroduodenoscopy (EGD) History of lateral meniscus repair of right knee History of open reduction and internal fixation (ORIF) procedure History of prostate biopsy History of toe surgery History of wisdom tooth extraction Hx of LASIK Hx of vasectomy S/P hemorrhoidectomy S/P shoulder surgery Family History Father Aortic aneurysm Hypertension Grandfather (Maternal) Cancer Grandmother (Maternal) Diabetes Mother Diabetes Other No family history of adverse response to anesthesia Denies family history of Ovarian cancer Prostate cancer Myocardial infarction Breast cancer Colorectal cancer Social History Smoking Status: Never smoker Second Hand Exposure: No; Hx Alcohol Use: Yes Alcohol type: beer Hx Substance Use: No Preferred Language: Colombian Communication Ability: Effective Visual Impairment: No Limitations Hearing Ability: Use of Hearing Aid Respiratory Therapist Assistant Required: No Beliefs That Will Affect Care: None marital status: Current Living Situation: Spouse current occupational status: retired Feels Safe at Home: Yes Childhood Exposure to Second-Hand Smoke: No Dental Care, Regularly: Yes Physical Activity Frequency: Daily Seatbelt Use: always Sunscreen Use: Yes Assistive Devices: Glasses and Hearing Aid - Bilateral Allergies Allergies Allergy/AdvReac Type Severity Reaction Status Date / Time Zocor TABS Allergy Uncoded 02/06/22 08:07 Home Meds Home Medications Medication Instructions Recorded Confirmed aspirin 325 mg tablet 325 mg PO QAM 01/24/19 02/06/22 omeprazole magnesium 20 mg 20 mg PO QAM 01/24/19 02/06/22 tablet,delayed release multivitamin 1 tab PO QAM 03/02/21 02/06/22 Previous Rx's Medication Instructions Recorded sildenafil 50 mg tablet 50 mg PO DAILY PRN sexual activity 05/26/20 #10 tabs hydrocortisone 2.5 % topical cream 1 applic NE DAILY PRN hemorrhoids 01/08/22 with perineal applicator #30 grams (Anusol-HC) lisinopril 2.5 mg tablet 2.5 mg PO QAM #90 tabs 02/06/22 rosuvastatin 5 mg tablet (Crestor) 5 mg PO 3XWK #30 tabs 03/22/22 Results & Data (ED) Vital Signs Vital Signs - 24 hr 05/15/22 11:24 05/15/22 11:43 05/15/22 11:44 Temperature 36.8 C Temperature Source Temporal Artery Scan Pulse Rate 66 Pulse Rate [Apical] 63 Pulse Rhythm Regular Pulse Strength Normal Respiratory Rate 20 20 Respiratory Effort / Characteristics Non-Labored Spontaneous Non-Labored Spontaneous Respiratory Depth Normal Normal Respiratory Pattern Regular Regular Blood Pressure 198/105 H Blood Pressure [Left Arm] 196/94 H Blood Pressure Mean 136 Blood Pressure Mean [Left Arm] 128 Blood Pressure Position Sitting Pulse Oximetry 99 95 99 Oxygen Delivery Method Room Air Room Air Room Air Sepsis Recent Fever Within 48 Hours No Sepsis New/Unexplained Change in Mental Status No Sepsis Action Taken by Nursing No Action Required 05/15/22 11:51 05/15/22 11:58 Temperature Temperature Source Pulse Rate 63 Pulse Rate [Apical] 59 L Pulse Rhythm Pulse Strength Respiratory Rate 20 20 Respiratory Effort / Characteristics Non-Labored Spontaneous Respiratory Depth Normal Respiratory Pattern Regular Blood Pressure 190/93 H Blood Pressure [Left Arm] 150/77 H Blood Pressure Mean 125 Blood Pressure Mean [Left Arm] 101 Blood Pressure Position Pulse Oximetry 99 97 Oxygen Delivery Method Room Air Room Air Sepsis Recent Fever Within 48 Hours Sepsis New/Unexplained Change in Mental Status Sepsis Action Taken by Nursing Laboratory Data 05/15/22 11:38 05/15/22 11:38 Lab Results 05/15/22 05/15/22 05/15/22 Range/Units 11:38 11:38 11:38 WBC 5.44 (4.8-10.8) K/ul RBC 4.43 L (4.70-6.10) M/uL Hgb 13.6 L (14.0-18.0) g/dl Hct 40.3 L (42.0-52.0) % MCV 91.0 (80.0-100.0) fL MCH 30.7 (25.0-34.0) pg MCHC 33.7 (32.0-36.0) g/dL RDW Std Deviation 42.1 (36.4-46.3) fL RDW Coeff of [place] 12.7 (11.5-14.5) % Plt Count 285 (130-400) K/uL MPV 10.3 (9.4-12.4) fL Immature Gran % (Auto) 0.2 % Neut % (Auto) 74.8 % Lymph % (Auto) 15.4 % [place] % (Auto) 7.9 % Eos % (Auto) 1.3 % Baso % (Auto) 0.4 % Neut # (Auto) 4.07 (1.40-6.50) K/uL Lymph # (Auto) 0.84 L (1.2-3.4) K/uL [place] # (Auto) 0.43 (0.11-0.59) K/uL Eos # (Auto) 0.07 (0-0.50) K/uL Baso # (Auto) 0.02 (0-0.2) K/uL Immature Gran # (Auto) 0.01 (0.01-0.20) K/uL PT 10.8 (9.0-12.0) Seconds INR 1.0 (0.9-1.1) APTT 24.3 (21.0-31.0) Seconds PTT Ratio 0.9 Sodium 134 L (136-145) mmol/L Potassium 3.9 (3.5-5.1) mmol/L Chloride 104 (98-107) mmol/L Carbon Dioxide 26 (21-32) mmol/L Anion Gap 4 (3-11) BUN 16 (6-23) mg/dl Creatinine 1.01 (0.6-1.4) mg/dl Est Cr Clr Drug Dosing 57.5 ml/min Est GFR ( Amer) 85.7 ml/min Est GFR (Non-Af Amer) 74.0 ml/min BUN/Creatinine Ratio 15.8 (10-20) Glucose 99 (70-99(Fasting)) mg/dl POC Glucose (70-99) mg/dl Calcium 9.0 (8.5-10.1) mg/dl Magnesium 2.0 (1.7-2.4) mg/dl Total Bilirubin 0.4 (0.2-1.0) mg/dl AST 16 (13-39) U/L ALT 13 (7-52) U/L Alkaline Phosphatase 47 (34-104) U/L Troponin I High Sens 3.4 (0-20) pg/ml Total Protein 6.1 (6.0-8.3) gm/dl Albumin 3.8 (3.4-5.0) gm/dl Globulin 2.3 L (2.5-4.0) gm/dl Albumin/Globulin Ratio 1.7 (0.9-2) 05/15/22 Range/Units 11:41 WBC (4.8-10.8) K/ul RBC (4.70-6.10) M/uL Hgb (14.0-18.0) g/dl Hct (42.0-52.0) % MCV (80.0-100.0) fL MCH (25.0-34.0) pg MCHC (32.0-36.0) g/dL RDW Std Deviation (36.4-46.3) fL RDW Coeff of [place]on (11.5-14.5) % Plt Count (130-400) K/uL MPV (9.4-12.4) fL Immature Gran % (Auto) % Neut % (Auto) % Lymph % (Auto) % [place] % (Auto) % Eos % (Auto) % Baso % (Auto) % Neut # (Auto) (1.40-6.50) K/uL Lymph # (Auto) (1.2-3.4) K/uL [place] # (Auto) (0.11-0.59) K/uL Eos # (Auto) (0-0.50) K/uL Baso # (Auto) (0-0.2) K/uL Immature Gran # (Auto) (0.01-0.20) K/uL PT (9.0-12.0) Seconds INR (0.9-1.1) APTT (21.0-31.0) Seconds PTT Ratio Sodium (136-145) mmol/L Potassium (3.5-5.1) mmol/L Chloride (98-107) mmol/L Carbon Dioxide (21-32) mmol/L Anion Gap (3-11) BUN (6-23) mg/dl Creatinine (0.6-1.4) mg/dl Est Cr Clr Drug Dosing ml/min Est GFR ( Amer) ml/min Est GFR (Non-Af Amer) ml/min BUN/Creatinine Ratio (10-20) Glucose (70-99(Fasting)) mg/dl POC Glucose 92 (70-99) mg/dl Calcium (8.5-10.1) mg/dl Magnesium (1.7-2.4) mg/dl Total Bilirubin (0.2-1.0) mg/dl AST (13-39) U/L ALT (7-52) U/L Alkaline Phosphatase (34-104) U/L Troponin I High Sens (0-20) pg/ml Total Protein (6.0-8.3) gm/dl Albumin (3.4-5.0) gm/dl Globulin (2.5-4.0) gm/dl Albumin/Globulin Ratio (0.9-2) Administered Medications Discontinued Medications Aspirin (Aspirin Chew 324 Mg) 162 mg PO NOW STA Stop: 05/15/22 12:01 Last Admin: 05/15/22 12:17 Dose: Not Given Documented By: CHON Clopidogrel Bisulfate (Clopidogrel Bisulfate 300 Mg Tab) 600 mg PO NOW STA Stop: 05/15/22 12:01 Last Admin: 05/15/22 12:27 Dose: 600 mg Documented By: CHON Ioversol (Optiray 320 500ml) 120 ml IV ONCE ONE Stop: 05/15/22 11:34 Last Admin: 05/15/22 11:33 Dose: 120 ml Documented By: LUCIA Labetalol HCl (Labetalol Hcl Iv 5 Mg/Ml 20ml) 10 mg IV NOW STA Stop: 05/15/22 11:48 Last Admin: 05/15/22 11:55 Dose: 10 mg Documented By: CHON Co-signed By: EB Imaging Data Radiologist's Impression: Head CT 05/15/22 11:27 CT SCAN OF THE BRAIN WITHOUT IV CONTRAST CLINICAL HISTORY: Neurological deficit. Stroke like symptoms. Left-sided weakness. COMPARISON STUDY: CT of the brain dated 01/06/2007 TECHNIQUE: Unenhanced axial CT scan of the brain is performed from the vertex to the skull base. A dose lowering technique was utilized adhering to the principle s of ALARA. FINDINGS: Brain parenchyma: There is age-related involutional change noting moderate subcortical and periventricular microangiopathic disease. There is no hemorrhage, mass effect, or evidence of acute territorial ischemia by CT criteria. Velazquez-white matter differentiation is preserved. No extra-axial fluid collection is seen. Ventricles, sulci, cisterns: Prominent secondary to involutional change. Intracranial vasculature: There is atherosclerotic calcification of the cavernous carotid and vertebral arteries. Calvarium: Unremarkable. Sinuses and mastoids: The visualized paranasal sinuses are clear. The mastoid air cells are well pneumatized. Orbits: The bony orbits are grossly intact. IMPRESSION: There is no hemorrhage, mass effect, or evidence of acute ter ritorial ischemia by CT criteria. ACT 112: Negative or not required by law. Electronically signed by: Kamron Turner M.D. 05/15/2022 11:48 AM Head CTA 05/15/22 11:27 CT angio head w con CLINICAL HISTORY: 72 years-old Male with neuro deficit, acute stroke suspected. Acute strokelike symptoms COMPARISON STUDY: Head CT of same day TECHNIQUE: Following the IV administration of 120 cc of Optiray, CT angiogram of the brain was performed from the skull base to the vertex. Images are reviewed in the axial, sagittal, and coronal planes. 3-D MIPS images are created and assessed. IV contrast was administered without complication. All measurements we re obtained according to NASCET criteria. A dose lowering technique was utilized adhering to the principles of ALARA. CT DOSE: 1171.17 mGy.cm FINDINGS: CT ANGIOGRAM OF THE BRAIN: The imaged bilateral internal carotid arteries are patent. The bilateral anterior and middle cerebral arteries are also patent. The vertebrobasilar system and posterior cerebral arteries are widely patent. Dominant left vertebral artery. There is no aneurysm, high-grade stenosis, or proximal branch occlusion identified. Dural sinuses appear patent. Involutional changes with chronic microvascular ischemic disease. IMPRESSION: Unremarkable CTA of the head. ACT 112: Negative or not required by law. The above report was generated using voice recognition software. It may contain grammatical, syntax or spelling errors. Electronically signed by: Cesar Castrejon M.D. 05/15/2022 11:56 AM Neck CTA 05/15/22 11:27 CT ANGIOGRAPHY OF THE NECK WITH CONTRAST CLINICAL HISTORY: neuro deficit, acute stroke suspected. Left-sided weakness. COMPARISON STUDY: Carotid ultrasound February 08, 2020. Technique: CT angiography of the carotid and vertebral arteries was obtained using Optiray and 3D reconstruction on an independent workstation. NASCET criteria was utilized. Automated exposure control was utilized for the study. A dose lowering technique was utilized adhering to the principles of ALARA. Findings: There is no acute cervical spine fracture. Lucent lesions within the cervical spine are likely benign. There is no cervical lymphadenopathy. The bilateral common carotid, cervical internal carotid and vertebral arteries are patent. The left vertebral artery is dominant. No stenosis within these vessels. There is mild plaque within the proximal right internal carotid artery without stenosis. There is moderate plaque at the origin of the left vertebral artery without significant stenosis. There is no dissection or aneurysm within the neck. IMPRESSION: No stenosis or dissection within the bilateral common carotid, cervical internal carotid or vertebral arteries. ACT 112: Negative or not required by law. Electronically signed by: Calvin Padilla M.D. 05/15/2022 11:50 AM Discharge Plan Visit Data Chief Complaint: Neuro Symptoms/Deficit Stated Complaint: SOB, NUMBNESS IN LEFT ARM, NUMB FACE ED Provider: José Miguel Dangelo Discharge Problem: Stroke-like symptom Forms Stand Alone Forms: My Needium Prescriptions Prescriptions: No Action aspirin 325 mg tablet 325 mg PO QAM omeprazole magnesium 20 mg tablet,delayed release (DR/EC) 20 mg PO QAM lisinopril 2.5 mg tablet 2.5 mg PO QAM Qty: 90 3RF Referrals Referrals: Pro,Keshav Torres MD [Primary Care Provider] -
--- NOTE | 2022-05-15 11:52 | CT Scan Report ---
CT ANGIOGRAPHY OF THE NECK WITH CONTRAST CLINICAL HISTORY: neuro deficit, acute stroke suspected. Left-sided weakness. COMPARISON STUDY: Carotid ultrasound February 08, 2020. Technique: CT angiography of the carotid and vertebral arteries was obtained using Optiray and 3D rec onstruction on an independent workstation. NASCET criteria was utilized. Automated exposure control was utilized for the study. A dose lowering technique was utilized adhering to the principles of ALA RA. Findings: There is no acute cervical spine fracture. Lucent lesions within the cervical spine are lik milena benign. There is no cervical lymphadenopathy. The bilateral common carotid, cervical internal car otid and vertebral arteries are patent. The left vertebral artery is dominant. No stenosis within the se vessels. There is mild plaque within the proximal right internal carotid artery without stenosis. There is moderate plaque at the origin of the left vertebral artery without significant stenosis. The re is no dissection or aneurysm within the neck. IMPRESSION: No stenosis or dissection within the bilateral common carotid, cervical internal carotid or vertebral arteries. ACT 112: Negative or not required by law. Electronically signed by: Calvin Padilla M.D. 05/15/2022 11:50 AM
[2022-05-15 11:57] LABS: Basophils # (auto) 0.02 K/uL (0-0.2); Basophils % (auto) 0.4 %; Eosinophils # (auto) 0.07 K/uL (0-0.50); Eosinophils % (auto) 1.3 %; Hematocrit (blood only) 40.3 % (42.0-52.0); Hemoglobin 13.6 g/dl (14.0-18.0); Immature Granulocytes # (auto) 0.01 K/uL (0.01-0.20); Immature Granulocytes % (auto) 0.2 %; Lymphocytes # (auto) 0.84 K/uL (1.2-3.4); Lymphocytes % (auto) 15.4 %; Mean Corpuscular Hemoglobin 30.7 pg (25.0-34.0); Mean Corpuscular Hgb Conc 33.7 g/dL (32.0-36.0); Mean Platelet Volume 10.3 fL (9.4-12.4); Monocytes # (auto) 0.43 K/uL (0.11-0.59); Monocytes % (auto) 7.9 %; Neutrophils # (auto) 4.07 K/uL (1.40-6.50); Neutrophils % (auto) 74.8 %; Platelet Count 285 K/uL (130-400); RDW Coefficient of Variation 12.7 % (11.5-14.5); RDW Standard Deviation 42.1 fL (36.4-46.3); Red Blood Count 4.43 M/uL (4.70-6.10); White Blood Count 5.44 K/ul (4.8-10.8)
--- NOTE | 2022-05-15 11:57 | CT Scan Report ---
CT angio head w con CLINICAL HISTORY: 72 years-old Male with neuro deficit, acute stroke suspected. Acute strokelike s ymptoms COMPARISON STUDY: Head CT of same day TECHNIQUE: Following the IV administration of 120 cc of Optiray, CT angiogram of the brain was perfor med from the skull base to the vertex. Images are reviewed in the axial, sagittal, and coronal planes . 3-D MIPS images are created and assessed. IV contrast was administered without complication. All me asurements were obtained according to NASCET criteria. A dose lowering technique was utilized adherin g to the principles of ALARA. CT DOSE: 1171.17 mGy.cm FINDINGS: CT ANGIOGRAM OF THE BRAIN: The imaged bilateral internal carotid arteries are patent. The bilateral anterior and middle cerebral arteries are also patent. The vertebrobasilar system and posterior cerebral arteries are widely resendiz nt. Dominant left vertebral artery. There is no aneurysm, high-grade stenosis, or proximal branch occ lusion identified. Dural sinuses appear patent. Involutional changes with chronic microvascular ische gloria disease. IMPRESSION: Unremarkable CTA of the head. ACT 112: Negative or not required by law. The above report was generated using voice recognition software. It may contain grammatical, syntax o r spelling errors. Electronically signed by: Cesar Castrejon M.D. 05/15/2022 11:56 AM
[2022-05-15] MEDS ORDERED: ASPIRIN CHEW 324 MG PO STA (12:00)
[2022-05-15] MEDS ORDERED: CLOPIDOGREL BISULFATE 300 MG TAB PO STA (12:00)
[2022-05-15 12:16] LABS: Albumin Globulin Ratio 1.7 (0.9-2); Albumin Level 3.8 gm/dl (3.4-5.0); BUN Creatinine Ratio 15.8 (10-20); Bilirubin,Total 0.4 mg/dl (0.2-1.0); Creatinine Clr Calc Pharmacy 57.5 ml/min; Est GFR (African American) 85.7 ml/min; Globulin 2.3 gm/dl (2.5-4.0); Potassium 3.9 mmol/L (3.5-5.1); Total Protein 6.1 gm/dl (6.0-8.3)
[2022-05-15 12:20] LABS: Troponin I High Sensitivity 3.4 pg/ml (0-20)
[2022-05-15 12:28] LABS: Partial Thromboplastin Ratio 0.9; Partial Thromboplastin Time 24.3 Seconds (21.0-31.0); Prothrombin Time 10.8 Seconds (9.0-12.0)
--- NOTE | 2022-05-15 13:07 | XRay Report ---
XR chest 1V portable HISTORY: shortness of breath COMPARISON: Chest 06/07/2016. FINDINGS: No pneumothorax. No pleural effusions. The lungs are clear. The heart is normal in size. Po stoperative changes again noted within the left humerus. IMPRESSION: No significant change compared to the prior study. No acute process. ACT 112: Negative or not required by law. Electronically signed by: Jurgen Pettit M.D. 05/15/2022 1:05 PM
--- NOTE | 2022-05-15 13:57 | History & Physical Report ---
Date of Service May 15, 2022 Assessment & Plan (1) Stroke-like symptom: Plan: Loaded with aspirin and prasugrel in the emergency room per telestroke recommendations. Continue dual antiplatelet therapy. Start rosuvastatin as previously intolerant to atorvastatin Lipid panel and HbA1c with a.m. labs Brain MRI TTE Consult neurology for tomorrow (2) Hyperlipidemia: Plan: Previously taken off atorvastatin due to knee pain Start rosuvastatin as above. Consider co-Q10 to mitigate myalgia side effects. (3) Hypertension: Plan: Continue lisinopril 2.5 mg p.o. daily (4) GERD (gastroesophageal reflux disease): Plan: Switch omeprazole to pantoprazole per hospital formulary Plan VTE prophylaxis - Lovenox 40 mg subcu daily Diet - heart healthy Disposition - observation status to [facility] telemetry Admission and Anticipated Discharge Date Admission Date: May 15, 2022 History of Present Illness Chief Complaint: Stroke-like symptoms Primary Care Provider: Keshav Toth MD Tanmay Yun is a 72-year-old male who presents to the ER with strokelike symptoms. He reports feeling shortness of breath initially around 7:30 AM and not feeling his usual self. Around 9:30 AM he developed left upper extremity numbness and weakness with possible left-sided facial droop and tingling. Symptoms completely relieved within 30 minutes of arriving at the emergency room. Total duration 2.5 hours. Case was discussed with telestroke by the ER physician and not considered a candidate for thrombolytic treatment. He is now completely symptom free. Patient is a non-smoker. No previous strokes or heart attacks. No history of migraines. Home Medications Medication Instructions Recorded Confirmed Type aspirin 325 mg tablet 325 mg PO QAM 01/24/19 05/15/22 History omeprazole magnesium 20 mg 20 mg PO QAM 01/24/19 05/15/22 History tablet,delayed release lisinopril 2.5 mg tablet 2.5 mg PO QAM #90 tabs 02/06/22 05/15/22 Rx Past Med/Surg History Medical History Diverticulosis of colon GERD (gastroesophageal reflux disease) History of vitamin D deficiency Hyperlipidemia Hypertension Internal hemorrhoids Tubular adenoma of colon Surgical History History of carpal tunnel surgery of right wrist History of colonoscopy History of esophagogastroduodenoscopy (EGD) History of lateral meniscus repair of right knee History of open reduction and internal fixation (ORIF) procedure left arm--hardware in place History of prostate biopsy benign History of toe surgery right big toe bone spur removal History of wisdom tooth extraction Hx of LASIK Hx of vasectomy S/P hemorrhoidectomy S/P shoulder surgery left Family History Father Aortic aneurysm Hypertension Grandfather (Maternal) Cancer Grandmother (Maternal) Diabetes Mother Diabetes Other No family history of adverse response to anesthesia Denies family history of Ovarian cancer Prostate cancer Myocardial infarction Breast cancer Colorectal cancer Social History Smoking Status: Never smoker Second Hand Exposure: No; Hx Alcohol Use: Yes Alcohol type: beer Hx Substance Use: No Preferred Language: Dominican Communication Ability: Effective Visual Impairment: No Limitations Hearing Ability: Use of Hearing Aid Retirement Plan Specialist Required: No Beliefs That Will Affect Care: None marital status: Current Living Situation: Spouse current occupational status: retired Feels Safe at Home: Yes Childhood Exposure to Second-Hand Smoke: No Dental Care, Regularly: Yes Physical Activity Frequency: Daily Seatbelt Use: always Sunscreen Use: Yes Assistive Devices: Glasses and Hearing Aid - Bilateral Review of Systems Review of Systems: All systems reviewed & are unremarkable except as noted in HPI & below Physical Exam Constitutional: WD/WN, vitals as above Eyes: PERRL, conjunctivae normal, anicteric sclerae EOM intact bilaterally ENMT: external ear and nose normal, oropharynx normal Neck: trachea midline, no thyromegaly Respiratory: normal respiratory effort, lungs clear to auscultation Cardiovascular: RRR, no murmur, no edema Gastrointestinal (Abdomen): normal bowel sounds, soft, nontender, no hepatosplenomegaly Musculoskeletal: no cyanosis or clubbing, extremities motor strength 5/5 Skin: no rashes, warm and dry Neurologic: moves all extremities and awake; no focal motor deficits and not confused Speech / Cognition: normal speech Motor/Sensory: no tremor and no pronator drift Cranial Nerves: PERRL, EOM intact bilaterally, normal facial strength, tongue midline, able to rotate head bilaterally, able to elevate shoulders bilaterally, no nystagmus and symmetric palate elevation Coordination: normal [id number] test and normal [id number] test Psychiatric: A+Ox3, euthymic affect Results & Data Results & Data ([facility]) Vital Signs (Past 12 Hours) Vital Signs Temp Pulse Pulse Resp BP BP Pulse Ox 05/15/22 13:14 54 L 20 165/87 H 100 05/15/22 11:58 59 L 20 150/77 H 97 05/15/22 11:51 63 20 190/93 H 99 05/15/22 11:44 63 20 196/94 H 99 05/15/22 11:43 95 05/15/22 11:24 36.8 C 66 20 198/105 H 99 O2 Del Method 05/15/22 13:14 Room Air 05/15/22 11:58 Room Air 05/15/22 11:51 Room Air 05/15/22 11:44 Room Air 05/15/22 11:43 Room Air 05/15/22 11:24 Room Air Laboratory Results Abnormal lab results 05/15/22 05/15/22 Range/Units 11:38 11:38 RBC 4.43 L (4.70-6.10) M/uL Hgb 13.6 L (14.0-18.0) g/dl Hct 40.3 L (42.0-52.0) % Lymph # (Auto) 0.84 L (1.2-3.4) K/uL Sodium 134 L (136-145) mmol/L Globulin 2.3 L (2.5-4.0) gm/dl Diagnostic Findings CT SCAN OF THE BRAIN WITHOUT IV CONTRAST CLINICAL HISTORY: Neurological deficit. Stroke like symptoms. Left-sided weakness. COMPARISON STUDY: CT of the brain dated 01/06/2007 TECHNIQUE: Unenhanced axial CT scan of the brain is performed from the vertex to the skull base. A dose lowering technique was utilized adhering to the principles of ALARA. FINDINGS: Brain parenchyma: There is age-related involutional change noting moderate subcortical and periventricular microangiopathic disease. There is no hemorrhage, mass effect, or evidence of acute territorial ischemia by CT criteria. Velazquez-white matter differentiation is preserved. No extra-axial fluid collection is seen. Ventricles, sulci, cisterns: Prominent secondary to involutional change. Intracranial vasculature: There is atherosclerotic calcification of the cavernous carotid and vertebral arteries. Calvarium: Unremarkable. Sinuses and mastoids: The visualized paranasal sinuses are clear. The mastoid air cells are well pneumatized. Orbits: The bony orbits are grossly intact. IMPRESSION: There is no hemorrhage, mass effect, or evidence of acute territorial ischemia by CT criteria. CT angio head w con CLINICAL HISTORY: 72 years-old Male with neuro deficit, acute stroke suspected. Acute strokelike symptoms COMPARISON STUDY: Head CT of same day TECHNIQUE: Following the IV administration of 120 cc of Optiray, CT angiogram of the brain was performed from the skull base to the vertex. Images are reviewed in the axial, sagittal, and coronal planes. 3-D MIPS images are created and assessed. IV contrast was administered without complication. All measurements were obtained according to NASCET criteria. A dose lowering technique was utilized adhering to the principles of ALARA. CT DOSE: 1171.17 mGy.cm FINDINGS: CT ANGIOGRAM OF THE BRAIN: The imaged bilateral internal carotid arteries are patent. The bilateral anterior and middle cerebral arteries are also patent. The vertebrobasilar system and posterior cerebral arteries are widely patent. Dominant left vertebral artery. There is no aneurysm, high-grade stenosis, or proximal branch occlusion identified. Dural sinuses appear patent. Involutional changes with chronic microvascular ischemic disease. IMPRESSION: Unremarkable CTA of the head. CT ANGIOGRAPHY OF THE NECK WITH CONTRAST CLINICAL HISTORY: neuro deficit, acute stroke suspected. Left-sided weakness. COMPARISON STUDY: Carotid ultrasound February 08, 2020. Technique: CT angiography of the carotid and vertebral arteries was obtained using Optiray and 3D reconstruction on an independent workstation. NASCET criteria was utilized. Automated exposure control was utilized for the study. A dose lowering technique was utilized adhering to the principles of ALARA. Findings: There is no acute cervical spine fracture. Lucent lesions within the cervical spine are likely benign. There is no cervical lymphadenopathy. The bilateral common carotid, cervical internal carotid and vertebral arteries are patent. The left vertebral artery is dominant. No stenosis within these vessels. There is mild plaque within the proximal right internal carotid artery without stenosis. There is moderate plaque at the origin of the left vertebral artery without significant stenosis. There is no dissection or aneurysm within the neck. IMPRESSION: No stenosis or dissection within the bilateral common carotid, cervical internal carotid or vertebral arteries. XR chest 1V portable HISTORY: shortness of breath COMPARISON: Chest 06/07/2016. FINDINGS: No pneumothorax. No pleural effusions. The lungs are clear. The heart is normal in size. Postoperative changes again noted within the left humerus. IMPRESSION: No significant change compared to the prior study. No acute process. Medications Administered ER medications given: Clopidogrel 600 mg p.o. Labetalol 10 mg IV ECG Indication: other (cva) Rate (beats per minute): 63 Rhythm: normal sinus (Possible ectopic atrial rhythm) Findings: + RBBB (Incomplete); no acute ischemic change Comparison ECG Date: from (October 10, 2021) Change: no significant change Code Status & VTE Plan Code Status Full VTE Prophylaxis Plan VTE Prophylaxis will be ordered: Yes PG Care Time/CCT Total # of Minutes Spent Total Time Spent with Patient: Total time spent is greater than 50% in coordination of care (as documented) at patient's floor/unit and/or counseling patient: Coding Level of Care Code 08551 INT INP/OBS CARE 2/55MIN Diagnoses Stroke-like symptom R29.90 Hyperlipidemia E78.5 Hypertension I10 GERD (gastroesophageal reflux disease) K21.9
[2022-05-15] MEDS ORDERED: LORazepam 2 MG/1 ML VIAL IV PRN (13:58)
[2022-05-15] MEDS ORDERED: PHARMACIST DISCHARGE MED REC CONSULT PRN (15:22)
[2022-05-15] MEDS ORDERED: ACETAMINOPHEN 325 MG TAB PO PRN (15:22)
--- NOTE | 2022-05-15 16:08 | Electrocardiogram Report ---
Test Reason : Blood Pressure : / mmHG Vent. Rate : 063 BPM Atrial Rate : 063 BPM P-R Int : 152 ms QRS Dur : 108 ms QT Int : 432 ms P-R-T Axes : 000 -43 027 degrees QTc Int : 442 ms Unusual P axis, possible ectopic atrial rhythm Left axis deviation Incomplete right bundle branch block Abnormal ECG When compared with ECG of 10-OCT-2021 10:16, No significant change Confirmed by Keshav Toscano ([id number]) on 05/15/2022 4:08:00 PM Referred By: REFERRED SELF Confirmed By:Keshav Toscano
--- NOTE | 2022-05-15 16:45 | Magnetic Resonance Report ---
Brain MRI WITHOUT CONTRAST HISTORY: Left upper extremity numbness, left facial droop TECHNIQUE: Multiplanar multisequence MRI of the brain was performed without the use of contrast. COMPARISON STUDY: Head CT 05/15/2022. Brain MRI 02/17/2020. FINDINGS: There are no areas of restricted diffusion to suggest acute infarction. The midline structu res are intact. The paranasal sinuses are clear. The mastoid air cells are clear. The ventricles and sulci are within normal limits for age. There is no mass, hematoma, midline shift. The major vascular flow-voids at the skull base are well maintained. Cerebellar atrophy again noted. Scattered foci of T2 hyperintensity within the white matter of the supratentorial brain persist and favor moderate micr ovascular ischemic change. This is also similar to the prior study. IMPRESSION: No significant change compared to the prior study. No acute intracranial abnormality. ACT 112: Negative or not required by law. Electronically signed by: Jurgen Pettit M.D. 05/15/2022 4:42 PM
--- NOTE | 2022-05-15 18:41 | Neurology Consultation ---
Date of Consultation May 15, 2022 Assessment & Plan (1) Stroke-like symptom: Impression: The patient had sudden onset of left upper extremity and left lower face paresthesia and numbness, which lasted for less than an hour. Imaging studies were negative for cerebrovascular accident or hemodynamically sig nificant stenosis of the neck and intracranial arteries. The patient has uncontrolled hypertension. He has not been on lipid-lowering treatment for last few months. He has been symptom-free in the emergency department and waiting for admission, for stroke work-up. He was loaded with Plavix, with intention to keep patient on double antiplatelet treatment for next 3 weeks. Plan/recommendations: I agree with double antiplatelet treatment for 3 weeks. Then, 1 no antiplatelet agent should be stopped. Echocardiogram. Lipid panel. Goal LDL level is lower than 70. We should start patient on statin based on serum lipid levels. Telemetry monitoring. If the patient stays stable without recurrence of neurological symptoms, then he can be discharged home tomorrow. Follow-up with neurology clinic in a month. I will contact with [facility] neurology to make an appointment. Thank you for the consultation. (2) Hyperlipidemia: Impression: The patient used to be on Lipitor, then Zocor, however, the patient has not been using any lipid-lowering treatment for last few months. Plan/recommendations: As seen above. (3) Hypertension: Impression: The patient has been treated for hypertension for a long time. He states that he has been compliant on treatment. His blood pressure in the emergency department running high. Plan/recommendations: There is no indication for permissive hypertension. Goal blood pressure is below 130/80. Adjustment of hypertension medications per hospitalist physician. History of Present Illness Reason for Consultation: Stroke-like symptoms Requesting Physician: Carlo Cosme MD Attending Physician: Carlo Cosme MD History of Present Illness The patient is a 72-year-old gentleman, who noticed sudden onset of left arm and left lower facial paresthesia and numbness, around 9:30 AM today. He did not notice any weakness, speech disturbance, imbalance, headache, visual changes, dizziness, vertigo, and decided to come to emergency department. He has no history of stroke and stroke symptoms. His blood pressure was elevated in emergency department. Head CT, CT angiography of head and neck were unremarkable. The case was discussed with teleneurology, and the patient was not considered a candidate for thrombolytic treatment. Symptoms were resolved less than in an hour. Cardiac monitoring has been showing sinus rhythm. Brain MRI did not show acute intracranial pathology including cerebrovascular accident. The patient was loaded with Plavix, and started on daily Plavix with 81 mg aspirin. The patient used to be on lipid-lowering treatment, but not on any statin for last few months, because he was having some knee pain. He takes daily aspirin without missing dosage. He has been on blood pressure medications and his blood pressure control was reasonably well as he reported. The patient denies smoking or illicit illicit drug use. He also denies having symptoms to suggest obstructive sleep apnea. He is waiting for admission, for stroke work- up. I have reviewed the patient's chart including imaging studies and visualized them personally. I have discussed the case with the patient and family, and I have answered their questions in detail. Home Medications Medication Instructions Recorded Confirmed Type aspirin 325 mg tablet 325 mg PO QAM 01/24/19 05/15/22 History omeprazole magnesium 20 mg 20 mg PO QAM 01/24/19 05/15/22 History tablet,delayed release lisinopril 2.5 mg tablet 2.5 mg PO QAM #90 tabs 02/06/22 05/15/22 Rx Patient History Medical History Diverticulosis of colon GERD (gastroesophageal reflux disease) History of vitamin D deficiency Hyperlipidemia Hypertension Internal hemorrhoids Tubular adenoma of colon Surgical History History of carpal tunnel surgery of right wrist History of colonoscopy History of esophagogastroduodenoscopy (EGD) History of lateral meniscus repair of right knee History of open reduction and internal fixation (ORIF) procedure left arm--hardware in place History of prostate biopsy benign History of toe surgery right big toe bone spur removal History of wisdom tooth extraction Hx of LASIK Hx of vasectomy S/P hemorrhoidectomy S/P shoulder surgery left Family History Father Aortic aneurysm Hypertension Grandfather (Maternal) Cancer Grandmother (Maternal) Diabetes Mother Diabetes Other No family history of adverse response to anesthesia Denies family history of Ovarian cancer Prostate cancer Myocardial infarction Breast cancer Colorectal cancer Social History Smoking Status: Never smoker Second Hand Exposure: No; Hx Alcohol Use: Yes Alcohol type: beer Hx Substance Use: No Preferred Language: [place] Communication Ability: Effective Visual Impairment: No Limitations Hearing Ability: Use of Hearing Aid 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 HENT: Normal exam with inspection. CV: Hearth rhtyhm is regular. Neck: Supple, no carotid bruits. Lungs: Non-labored and comfortable breathing. Abdomen: Soft, non-tender, non-distended. Skin: No rash or ecchymosis. Extremities: No edema or cyanosis NEUROLOGICAL EXAMINATION: Mental Status: Alert and oriented to place, person and time. Cranial Nerves: II-XII are intact. No nystagmus. Funduscopy: Normal looking optic discs. Motor: 5/5 in all extremities without asymmetry. Tone: Normal without spasticity or rigidity. Sensory: Intact to all sensory modalities. Coordination: No dysmetria with FTN testing. Speech: Fluent. Comprehension is intact. Gait: Normal. No ataxia or abnormal walking pattern. Musculoskeletal: Normal muscle bulk, no atrophy. DTRs: 2- all. No Babinsky. Results & Data ([facility]) Vital Signs (Past 12 Hours) Vital Signs Temp Pulse Pulse Resp BP BP Pulse Ox 05/15/22 18:04 63 15 150/75 H 99 05/15/22 16:44 58 L 15 160/85 H 100 05/15/22 15:42 05/15/22 15:41 53 L 18 158/89 H 100 05/15/22 13:14 54 L 20 165/87 H 100 05/15/22 11:58 59 L 20 150/77 H 97 05/15/22 11:51 63 20 190/93 H 99 05/15/22 11:44 63 20 196/94 H 99 05/15/22 11:43 95 05/15/22 11:24 36.8 C 66 20 198/105 H 99 Pulse Ox O2 Del Method O2 Del Method 05/15/22 18:04 Room Air 05/15/22 16:44 Room Air 05/15/22 15:42 100 Room Air 05/15/22 15:41 Room Air 05/15/22 13:14 Room Air 05/15/22 11:58 Room Air 05/15/22 11:51 Room Air 05/15/22 11:44 Room Air 05/15/22 11:43 Room Air 05/15/22 11:24 Room Air Laboratory Results Laboratory Results - last 24 hr 05/15/22 05/15/22 05/15/22 11:38 11:38 11:38 WBC 5.44 RBC 4.43 L Hgb 13.6 L Hct 40.3 L MCV 91.0 MCH 30.7 MCHC 33.7 RDW Std Deviation 42.1 RDW Coeff of [place] 12.7 Plt Count 285 MPV 10.3 Immature Gran % (Auto) 0.2 Neut % (Auto) 74.8 Lymph % (Auto) 15.4 [place] % (Auto) 7.9 Eos % (Auto) 1.3 Baso % (Auto) 0.4 Neut # (Auto) 4.07 Lymph # (Auto) 0.84 L [place] # (Auto) 0.43 Eos # (Auto) 0.07 Baso # (Auto) 0.02 Immature Gran # (Auto) 0.01 PT 10.8 INR 1.0 APTT 24.3 PTT Ratio 0.9 Sodium Potassium Chloride Carbon Dioxide Anion Gap BUN Creatinine Est Cr Clr Drug Dosing Est GFR ( Amer) Est GFR (Non-Af Amer) BUN/Creatinine Ratio Glucose POC Glucose Calcium Magnesium Total Bilirubin AST ALT Alkaline Phosphatase Troponin I High Sens Total Protein Albumin Globulin Albumin/Globulin Ratio SARS-CoV-2, RNA, NAAT Blood Type A Positive Antibody Screen NEGATIVE 05/15/22 05/15/22 05/15/22 11:38 11:41 12:16 WBC RBC Hgb Hct MCV MCH MCHC RDW Std Deviation RDW Coeff of [place] Plt Count MPV Immature Gran % (Auto) Neut % (Auto) Lymph % (Auto) [place] % (Auto) Eos % (Auto) Baso % (Auto) Neut # (Auto) Lymph # (Auto) [place] # (Auto) Eos # (Auto) Baso # (Auto) Immature Gran # (Auto) PT INR APTT PTT Ratio Sodium 134 L Potassium 3.9 Chloride 104 Carbon Dioxide 26 Anion Gap 4 BUN 16 Creatinine 1.01 Est Cr Clr Drug Dosing 57.5 Est GFR ( Amer) 85.7 Est GFR (Non-Af Amer) 74.0 BUN/Creatinine Ratio 15.8 Glucose 99 POC Glucose 92 Calcium 9.0 Magnesium 2.0 Total Bilirubin 0.4 AST 16 ALT 13 Alkaline Phosphatase 47 Troponin I High Sens 3.4 Total Protein 6.1 Albumin 3.8 Globulin 2.3 L Albumin/Globulin Ratio 1.7 SARS-CoV-2, RNA, NAAT NEGATIVE Blood Type Antibody Screen Diagnostic Findings Head CT 05/15/22 11:27 CT SCAN OF THE BRAIN WITHOUT IV CONTRAST CLINICAL HISTORY: Neurological deficit. Stroke like symptoms. Left-sided weakness. COMPARISON STUDY: CT of the brain dated 01/06/2007 TECHNIQUE: Unenhanced axial CT scan of the brain is performed from the vertex to the skull base. A dose lowering technique was utilized adhering to the principles of ALARA. FINDINGS: Brain parenchyma: There is age-related involutional change noting moderate subcortical and periventricular microangiopathic disease. There is no hemorrhage, mass effect, or evidence of acute territorial ischemia by CT criteria. Velazquez-white matter differentiation is preserved. No extra-axial fluid collection is seen. Ventricles, sulci, cisterns: Prominent secondary to involutional change. Intracranial vasculature: There is atherosclerotic calcification of the cavernous carotid and vertebral arteries. Calvarium: Unremarkable. Sinuses and mastoids: The visualized paranasal sinuses are clear. The mastoid air cells are well pneumatized. Orbits: The bony orbits are grossly intact. IMPRESSION: There is no hemorrhage, mass effect, or evidence of acute territor ial ischemia by CT criteria. ACT 112: Negative or not required by law. Electronically signed by: Kamron Turner M.D. 05/15/2022 11:48 AM Head CTA 05/15/22 11:27 CT angio head w con CLINICAL HISTORY: 72 years-old Male with neuro deficit, acute stroke suspected. Acute strokelike symptoms COMPARISON STUDY: Head CT of same day TECHNIQUE: Following the IV administration of 120 cc of Optiray, CT angiogram of the brain was performed from the skull base to the vertex. Images are reviewed in the axial, sagittal, and coronal planes. 3-D MIPS images are created and assessed. IV contrast was administered without complication. All measurements were obtained according to NASCET criteria. A dose lowering technique was utilized adhering to the principles of ALARA. CT DOSE: 1171.17 mGy.cm FINDINGS: CT ANGIOGRAM OF THE BRAIN: The imaged bilateral internal carotid arteries are patent. The bilateral anterior and middle cerebral arteries are also patent. The vertebrobasilar system and posterior cerebral arteries are widely patent. Dominant left vertebral artery. There is no aneurysm, high-grade stenosis, or proximal branch occlusion identified. Dural sinuses appear patent. Involutional changes with chronic microvascular ischemic disease. IMPRESSION: Unremarkable CTA of the head. ACT 112: Negative or not required by law. The above report was generated using voice recognition software. It may contain grammatical, syntax or spelling errors. Electronically signed by: Cesar Castrejon M.D. 05/15/2022 11:56 AM Neck CTA 05/15/22 11:27 CT ANGIOGRAPHY OF THE NECK WITH CONTRAST CLINICAL HISTORY: neuro deficit, acute stroke suspected. Left-sided weakness. COMPARISON STUDY: Carotid ultrasound February 08, 2020. Technique: CT angiography of the carotid and vertebral arteries was obtained using Optiray and 3D reconstruction on an independent workstation. NASCET criteria was utilized. Automated exposure control was utilized for the study. A dose lowering technique was utilized adhering to the principles of ALARA. Findings: There is no acute cervical spine fracture. Lucent lesions within the cervical spine are likely benign. There is no cervical lymphadenopathy. The bilateral common carotid, cervical internal carotid and vertebral arteries are patent. The left vertebral artery is dominant. No stenosis within these vessels. There is mild plaque within the proximal right internal carotid artery without stenosis. There is moderate plaque at the origin of the left vertebral artery without significant stenosis. There is no dissection or aneurysm within the neck. IMPRESSION: No stenosis or dissection within the bilateral common carotid, cervical internal carotid or vertebral arteries. ACT 112: Negative or not required by law. Electronically signed by: Calvin Padilla M.D. 05/15/2022 11:50 AM Brain MRI 05/15/22 12:28 Brain MRI WITHOUT CONTRAST HISTORY: Left upper extremity numbness, left facial droop TECHNIQUE: Multiplanar multisequence MRI of the brain was performed without the use of contrast. COMPARISON STUDY: Head CT 05/15/2022. Brain MRI 02/17/2020. FINDINGS: There are no areas of restricted diffusion to suggest acute infarction. The midline structures are intact. The paranasal sinuses are clear. The mastoid air cells are clear. The ventricles and sulci are within normal limits for age. There is no mass, hematoma, midline shift. The major vascular flow-voids at the skull base are well maintained. Cerebellar atrophy again noted. Scattered foci of T2 hyperintensity within the white matter of the supratentorial brain persist and favor moderate microvascular ischemic change. This is also similar to the prior study. IMPRESSION: No significant change compared to the prior study. No acute intracranial abnormality. ACT 112: Negative or not required by law. Electronically signed by: Jurgen Pettit M.D. 05/15/2022 4:42 PM Chest X-Ray 05/15/22 12:33 XR chest 1V portable HISTORY: shortness of breath COMPARISON: Chest 06/07/2016. FINDINGS: No pneumothorax. No pleural effusions. The lungs are clear. The heart is normal in size. Postoperative changes again noted within the left humerus. IMPRESSION: No significant change compared to the prior study. No acute process. ACT 112: Negative or not required by law. Electronically signed by: Jurgen Pettit M.D. 05/15/2022 1:05 PM
[2022-05-15] MEDS ORDERED: ROSUVASTATIN CALCIUM 20 MG TAB PO SCH (21:00)
[2022-05-16 08:50] LABS: Basophils # (auto) 0.02 K/uL (0-0.2); Basophils % (auto) 0.4 %; Eosinophils # (auto) 0.16 K/uL (0-0.50); Eosinophils % (auto) 3.2 %; Hematocrit (blood only) 39.6 % (42.0-52.0); Hemoglobin 13.5 g/dl (14.0-18.0); Immature Granulocytes # (auto) 0.02 K/uL (0.01-0.20); Immature Granulocytes % (auto) 0.4 %; Lymphocytes # (auto) 1.15 K/uL (1.2-3.4); Lymphocytes % (auto) 23.1 %; Mean Corpuscular Hemoglobin 30.1 pg (25.0-34.0); Mean Corpuscular Hgb Conc 34.1 g/dL (32.0-36.0); Mean Corpuscular Volume 88.4 fL (80.0-100.0); Mean Platelet Volume 10.8 fL (9.4-12.4); Monocytes # (auto) 0.46 K/uL (0.11-0.59); Monocytes % (auto) 9.2 %; Neutrophils # (auto) 3.17 K/uL (1.40-6.50); Neutrophils % (auto) 63.7 %; Platelet Count 281 K/uL (130-400); RDW Coefficient of Variation 12.9 % (11.5-14.5); RDW Standard Deviation 42.5 fL (36.4-46.3); Red Blood Count 4.48 M/uL (4.70-6.10); White Blood Count 4.98 K/ul (4.8-10.8)
[2022-05-16] MEDS ORDERED: CLOPIDOGREL BISULFATE 75 MG TAB PO SCH (09:00)
[2022-05-16] MEDS ORDERED: ENOXAPARIN INJ 40 MG/0.4 ML SYR SQ SCH (09:00)
[2022-05-16] MEDS ORDERED: ASPIRIN 81 MG ECTAB PO SCH (09:00)
[2022-05-16 09:34] LABS: BUN Creatinine Ratio 13.5 (10-20); Calcium 8.9 mg/dl (8.5-10.1); Chol HDL Ratio 4.9 (0-5); Creatinine Clr Calc Pharmacy 52.3 ml/min; Est GFR (African American) 76.5 ml/min; Potassium 4.1 mmol/L (3.5-5.1)
[2022-05-16 10:58] LABS: Estimated Average Glucose 111 mg/dl; Hemoglobin A1C 5.5 % (4.5-5.6)
[2022-05-16] MEDS ORDERED: STROKE PATIENT DISCHARGE STA (12:16)
--- NOTE | 2022-05-16 16:03 | Discharge Summary ---
Date of Service May 16, 2022 Admission HPI Per Admitting Provider Tanmay Yun is a 72-year-old male who presents to the ER with strokelike symptoms. He reports feeling shortness of breath initially around 7:30 AM and not feeling his usual self. Around 9:30 AM he developed left upper extremity numbness and weakness with possible left-sided facial droop and tingling. Symptoms completely relieved within 30 minutes of arriving at the emergency room. Total duration 2.5 hours. Case was discussed with telestroke by the ER physician and not considered a candidate for thrombolytic treatment. He is now completely symptom free. Patient is a non-smoker. No previous strokes or heart attacks. No history of migraines. Principal Diagnosis stroke like symptoms Discharge Exam The patient is awake, alert and oriented 3, well developed and well nourished, normocephalic and atraumatic, lying in bed and in no acute distress. HEENT--PERRL, EOMI, mucous membranes and oropharynx mildly dry Neck--supple. No JVD. No bruits. Thyroid normal, trachea midline, no adenopathy. Heart--normal S1 and S2. No murmurs, rubs or gallops. Lungs--clear bilaterally, no respiratory distress, no accessory muscle use. Abdomen--normal bowel sounds and soft. Mild epigastric and left sided abdominal pain Extremities--no cyanosis or clubbing. No edema. Dermatologic--normal skin turgor, normal color, no abnormal lymph nodes, no rash. Neurologic--cranial nerves II through XII grossly intact. Rheumatologic--normal range of motion. Psychiatric--normal affect. Discharge Data Consultations 05/15/22 12:27 ED Decision to Admit Stat 05/15/22 15:22 Consult Neurology Routine Ordered Studies 05/15/22 11:27 CT angio head w con Stat CT angio neck with con Stat CT head/brain wo con Stat 05/15/22 12:28 MRI Brain [MR brain wo con] Routine Hospital Course (1) Stroke-like symptom: Loaded with aspirin and prasugrel in the emergency room per telestroke recommendations. Continue dual antiplatelet therapy. Start rosuvastatin as previously intolerant to atorvastatin Lipid panel and HbA1c with a.m. labs Brain MRI did not show any evidence of stroke Evaluated by neurology, rec, dual antiplatelets for 3 weeks, then only one antiplatelets afterwards (2) Hyperlipidemia: Previously taken off atorvastatin due to knee pain Start rosuvastatin as above. Consider co-Q10 to mitigate myalgia side effects. (3) Hypertension: Continue lisinopril 2.5 mg p.o. daily (4) GERD (gastroesophageal reflux disease): Switch omeprazole to pantoprazole per hospital formulary Plan d/c home follow up with PCP and neurology Total Time Total Time Spent Total Time Spent (In Minutes): 35 Discharge Plan Discharge Items Patient Disposition: Home - Self-Care Reason For Visit: STROKE LIKE SYMPTOMS Discharge Diagnosis: stroke like symptoms Activity: Resume your previous activity Non-emergency contact: Primary Care Provider and Neurologist Call non-emergency contact if: you have any medication questions Follow-up/Referrals: Keshav Toth MD [Primary Care Provider] - 05/25/22 10:30 am Diet: Regular Addtl Attending Provider Instructions: please make appointment to follow up with neurology as soon as possible Pending Studies at Discharge: No Stand-Alone Forms: [facility] Estrogen Gene Test, Smoking Cessation, Medications to Prevent Stroke Medications and DC Order Prescriptions: New clopidogrel 75 mg Tablet 75 mg PO QAM 21 Days Qty: 21 0RF aspirin 81 mg Tablet,Delayed Release (Dr/Ec) 81 mg PO QAM 90 Days Qty: 90 0RF rosuvastatin [Crestor] 20 mg Tablet 20 mg PO QPM 30 Days Qty: 30 0RF Continued omeprazole magnesium 20 mg tablet,delayed release (DR/EC) 20 mg PO QAM lisinopril 2.5 mg tablet 2.5 mg PO QAM Qty: 90 3RF Discontinued aspirin 325 mg tablet 325 mg PO QAM Discharge Orders: Discharge Order (Routine); Ordered 05/16/22 Ordered By: Manuel Barlow Admission Data Admit Date/Time: 05/15/22 13:01 Attending Provider: Manuel Barlow Admit Provider: Carlo Cosme Primary Care Provider: Keshav Toth Other Providers: Carlo Cosme ; Dom Barraza Other Interventions: Discharge Summary Assessment (RN) Last Done: 05/16/22 12:56 Coding Level of Care Code HOSP INP/OBS DISCH >30 MIN Diagnoses Stroke-like symptom R29.90 Hyperlipidemia E78.5 Hypertension I10 GERD (gastroesophageal reflux disease) K21.9 Time Spent (min) 35
== END 2022-05-16 13:24 | disposition home or self-care (01) ==
LOC: EDINP 11:13 → ED 11:13 → SUATTDRO 13:01 → EDINP 15:24 → 2N 22:03